=== PATIENT | female | born 1980 | race Caucasian/White ===

== ENCOUNTER 2019-05-30 23:16 | Emergency (ER) | payer SELFPAY ==
[~2019-05-30] VITALS: Ht 152.4 cm; Wt 126.1 kg
[2019-05-31 01:15] VITALS: BP 153/81
== END 2019-05-31 01:15 | disposition home or self-care (01) ==
LOC: ED 23:16
DX: J06.9 Acute upper respiratory infection, unspecified (principal); I10 Essential (primary) hypertension
CPT/HCPCS: J0696; J1100

== ENCOUNTER 2019-10-20 03:59 | Emergency (ER) | payer SELFPAY ==
[~2019-10-20] VITALS: Ht 152.4 cm; Wt 136.5 kg
[2019-10-20 04:10] VITALS: Ht 152.4 cm; Wt 136.5 kg
[2019-10-20 04:51] VITALS: BP 153/83
== END 2019-10-20 04:51 | disposition home or self-care (01) ==
LOC: ED 03:59
DX: J03.90 Acute tonsillitis, unspecified (principal); E66.01 Morbid (severe) obesity due to excess calories; I10 Essential (primary) hypertension; Z68.43 Body mass index [BMI] 50.0-59.9, adult
CPT/HCPCS: J0696; J7512